=== PATIENT | male | born 1945 | race Caucasian/White ===

== ENCOUNTER 2016-06-27 10:26 | Day surgery (SDC) | payer MEDICARE, OTHER ==
--- NOTE | ~2016-06-27 | EGD ---
EGD REPORT [facility] [address] [place] [id number] NAME: RUBIA DORAN : [birth year] STATUS : REG [facility]#: [id number] AGE: 71 ADM/REG DATE : 06/27/16 MR#: [id number] REPORT SERV DATE: 06/27/16 DICTATED BY: HUMBERTO PINEDO DATE: 06/27/16 REPORT STATUS : Draft TRANSCRIBED [facility]: [facility] DATE: 06/27/16 Endoscopy Center Patient Name: Rubia Doran Date of : 1945 Attending MD: HUMBERTO PINEDO MD Procedure Date No Time: 06/27/2016 Procedure: Colonoscopy Indications: Surveillance: History of adenomatous polyps, inadequate prep on last exam (<3yr) Referring MD: DIAMOND AYOUB Medicines: See the Anesthesia note for documentation of the administered medications Complications: No immediate complications. Procedure: Pre-Anesthesia Assessment: - ASA Grade Assessment: IV - A patient with severe systemic disease that is a constant threat to life. After I obtained informed consent, the scope was passed under direct vision. Throughout the procedure, the patient's blood pressure, pulse, and oxygen saturations were monitored continuously. The CF [id number] was introduced through the anus and advanced to the terminal ileum, with identification of the appendiceal orifice and IC valve. The colonoscopy was performed without difficulty. The patient tolerated the procedure well. The quality of the bowel preparation was adequate. Findings: The perianal and digital rectal examinations were normal. Diverticula were found in the sigmoid colon and in the descending colon. Internal hemorrhoids were found during retroflexion and were small. A sessile polyp was found in the ascending colon. The polyp was small in size. The polyp was removed with a cold biopsy forceps. Resection and retrieval were complete. Impression: - Diverticulosis in the sigmoid colon and in the descending colon. - Internal hemorrhoids. - One small polyp in the ascending colon. Resected and retrieved. Recommendation: - Patient has a contact number available for emergencies. The signs and symptoms of potential delayed complications were discussed with the patient. Return to normal activities tomorrow. Written discharge instructions were provided to the patient. EGD REPORT [address] [address] NAME: RUBIA DORAN : [birth year] STATUS : REG [facility] [place] PAT#: [id number] AGE: 71 ADM/REG DATE : 06/27/16 MR#: [id number] REPORT SERV DATE: 06/27/16 DICTATED BY: HUMBERTO PINEDO DATE: 06/27/16 REPORT STATUS : Draft TRANSCRIBED BY: [employer] DATE: 06/27/16 - Regular diet. - Continue present medications. - Repeat colonoscopy in 5 years for surveillance. - Return to my office in 1 year. - FOR YOUR BIOPSY RESULTS: Please go to [email or web address] and register to receive your results via the portal. Your biopsy results will be posted there in about 7 to 10 days. IF you do not see result in 10 days, call office. Procedure Code(s): --- Professional --- 32505, Colonoscopy, flexible, proximal to splenic flexure; with biopsy, single or multiple Diagnosis Code(s): --- Professional --- K64.8, Other hemorrhoids K57.30, Diverticulosis of large intestine without perforation or abscess without bleeding D12.2, Benign neoplasm of ascending colon Z86.010, Personal history of colonic polyps CPT copyright 2013 [employer]. All rights reserved. The codes documented in this report are preliminary and upon gambling monitor review may be revised to meet current compliance requirements. Humberto Pinedo MD HUMBERTO PINEDO MD 06/27/2016 12:21 PM This report has been signed electronically. Number of Addenda: 0 Note Initiated On: 06/27/2016 11:50 AM Scope Withdrawal Time 0 hours 9 minutes 28 seconds [address] [place] [address]
--- NOTE | ~2016-06-27 | EGD ---
EGD REPORT [facility] [address] [address] NAME: RUBIA DORAN : [birth year] STATUS : REG [facility]#: [id number] AGE: 71 ADM/REG DATE : 06/27/16 MR#: [id number] REPORT SERV DATE: 06/27/16 DICTATED BY: HUMBERTO PINEDO DATE: 06/27/16 REPORT STATUS : Draft [facility]: [facility] DATE: 06/27/16 Endoscopy Center Patient Name: Rubia Doran Date of : 1945 Attending MD: HUMBERTO PINEDO MD Procedure Date No Time: 06/27/2016 Procedure: Upper GI endoscopy Indications: Gastro-esophageal reflux disease Referring MD: DIAMOND AYOUB Medicines: See the Anesthesia note for documentation of the administered medications Complications: No immediate complications. Procedure: Pre-Anesthesia Assessment: - ASA Grade Assessment: IV - A patient with severe systemic disease that is a constant threat to life. After obtaining informed consent, the endoscope was passed under direct vision. Throughout the procedure, the patient's blood pressure, pulse, and oxygen saturations were monitored continuously. The GIF [id number] was introduced through the mouth, and advanced to the second part of duodenum. The upper GI endoscopy was accomplished without difficulty. The patient tolerated the procedure well. Findings: The examined duodenum was normal. The cardia and gastric fundus were normal on retroflexion. The lower third of the esophagus was mildly tortuous. 1 cm antral submucosal lesion, no change Impression: - Normal examined duodenum. - Tortuous esophagus. - 1 cm antral submucosal lesion, no change Recommendation: - Patient has a contact number available for emergencies. The signs and symptoms of potential delayed complications were discussed with the patient. Return to normal activities tomorrow. Written discharge instructions were provided to the patient. - Regular diet. - Continue present medications. Procedure Code(s): --- Professional --- 16954, Esophagogastroduodenoscopy, flexible, transoral; diagnostic, including collection of specimen(s) by EGD REPORT [facility] [address] [facility] [place]. [address] NAME: RUBIA DORAN : [birth year] [place]US : [place] [facility] [place]#: [id number] AGE: 71 ADM/REG DATE : 06/27/16 MR#: [id number] REPORT SERV DATE: 06/27/16 DICTATED BY: HUMBERTO PINEDO DATE: 06/27/16 REPORT STATUS : Draft TRANSCRIBED BY: [employer] DATE: 06/27/16 brushing or washing, when performed (separate procedure) Diagnosis Code(s): --- Professional --- Q39.9, Congenital malformation of esophagus, unspecified K21.9, Gastro-esophageal reflux disease without esophagitis CPT copyright 2013 [employer]. All rights reserved. The codes documented in this report are preliminary and upon ore feeder review may be revised to meet current compliance requirements. Humberto Pinedo MD HUMBERTO PINEDO MD 06/27/2016 12:07 PM This report has been signed electronically. Number of Addenda: 0 Note Initiated On: 06/27/2016 11:57 AM Scope Withdrawal Time 0 hours 0 minutes 0 seconds [address] [place] [address]
[~2016-06-27 10:26] MED LIST: ASAB PO; ASAEC PO; BYSTOLIC2.5 MG PO; CALTRAT600 PO; FOLIC PO; GAMMAGARD; LIPITOR20 PO; LIPOTRIAD1 CAP PO; METHOC750B PO; MULTIPLE VIT PO; OXYCOD PO; P10 PO; PERFOROM INH; PLAVIX; PLAVIX PO; PRIN10 PO; PROAIR HFA INH; PROTONIX PO; PULRESP.5 INH; RESCUE INHALER PO; SAW PALMETT2 PO; SEV VITAMINS PO; SINGULAIR1 PO; SPIRIVA INH; SURBEX/ZINC1 TAB PO; URINOZINC PROSTATE
== END 2016-06-27 23:59 | disposition home or self-care (01) ==
LOC: DMU 10:26
PROVIDERS: Internal Medicine Gastroenterology
PROC: 0DBK8ZZ Excision of Ascending Colon, Via Natural or Artificial Opening Endoscopic (ICD-10-PCS; principal; 2016-06-27 12:00)
PROC: 0DJ08ZZ Inspection of Upper Intestinal Tract, Via Natural or Artificial Opening Endoscopic (ICD-10-PCS; 2016-06-27 12:00)
DX: Z12.11 Encounter for screening for malignant neoplasm of colon (principal); D12.2 Benign neoplasm of ascending colon; K64.8 Other hemorrhoids; K57.30 Diverticulosis of large intestine without perforation or abscess without bleeding; Q39.9 Congenital malformation of esophagus, unspecified; K21.9 Gastro-esophageal reflux disease without esophagitis; I25.10 Atherosclerotic heart disease of native coronary artery without angina pectoris; J44.9 Chronic obstructive pulmonary disease, unspecified; Z99.81 Dependence on supplemental oxygen; I10 Essential (primary) hypertension; E78.00 Pure hypercholesterolemia, unspecified; G89.29 Other chronic pain; G47.30 Sleep apnea, unspecified; Z79.52 Long term (current) use of systemic steroids; Z95.5 Presence of coronary angioplasty implant and graft; Z86.010 Personal history of colon polyps; Z98.890 Other specified postprocedural states; Z98.41 Cataract extraction status, right eye; Z98.42 Cataract extraction status, left eye; Z96.1 Presence of intraocular lens; Z86.2 Personal history of diseases of the blood and blood-forming organs and certain disorders involving the immune mechanism; Z87.442 Personal history of urinary calculi; Z87.891 Personal history of nicotine dependence; Z79.899 Other long term (current) drug therapy; Z79.891 Long term (current) use of opiate analgesic; Z79.82 Long term (current) use of aspirin
CPT/HCPCS: 88305